=== PATIENT | female | born 1960 | race Caucasian/White ===

== ENCOUNTER 2024-12-06 19:58 | Emergency (ER) | payer MEDICARE ==
[~2024-12-06] VITALS: Ht 175.3 cm; Wt 54.0 kg
[2024-12-06 20:00] VITALS: O2SAT 97
[2024-12-06 21:06] LABS: HEMATOCRIT. 38.6 % (36.0-48.0); HEMOGLOBIN. 12.8 g/dL (12.0-16.0); MEAN CORPUSCULAR HEMOGLOBIN 27.8 pg (28.0-32.0); MEAN CORPUSCULAR HGB CONC 33.2 g/dL (31.0-37.0); MEAN CORPUSCULAR VOLUME 83.8 fL (81.0-99.0); MEAN PLATELET VOLUME 8.8 fl (7.4-10.4); PLATELET 288 x1000/uL (130-400); WHITE BLOOD COUNT 17.4 x1000/uL (4.5-11.0)
[2024-12-06 21:07] LABS: DIFFERENTIAL COMMENT 1
[2024-12-06 21:14] LABS: CHLORIDE 102 mEq/L (98-107); POTASSIUM 3.9 mEq/L (3.5-5.1); SODIUM 137 mEq/L (136-145)
[2024-12-06 21:15] LABS: CALCIUM 9.5 mg/dL (8.7-10.4); CARBON DIOXIDE 26 mEq/L (21-32)
[2024-12-06 21:20] LABS: CREATININE 0.9 mg/dL (0.6-1.0); GLUCOSE 140 mg/dL (70-105); UREA NITROGEN BLOOD 10 mg/dL (9-23)
[2024-12-06 21:21] LABS: TROPONIN I HIGH SENSITIVITY < 4 ng/L (3.0-34)
[2024-12-06 21:22] LABS: ALANINE AMINOTRANSFERASE 35 IU/L (10-49); ALBUMIN 4.5 g/dL (3.2-4.8); ASPARTATE AMINOTRANSFERASE 24 IU/L (<34); BILIRUBIN DIRECT 0.2 mg/dL (<=3.0); BILIRUBIN TOTAL 0.9 mg/dL (0.1-1.0); PROTEIN TOTAL 7.3 g/dL (6.0-8.3); PROTHROMBIN TIME 10.7 sec (9.6-11.0)
[2024-12-06 22:05] LABS: PLATELET ESTIMATE NORMAL
[2024-12-06] MEDS: ONDANSETRON HCL 4MG/2ML INJ IV STA (22:08)
[2024-12-06] MEDS: FAMOTIDINE 20MG/2ML VIAL IV ONE (22:10)
[2024-12-06] MEDS: KETOROLAC 30MG/ML VIAL IV STA (22:10)
[2024-12-06] MEDS: SODIUM CHLORIDE 0.9% 1,000 ML IV ONE (22:10)
[2024-12-06] MEDS ORDERED: ONDA-239 PO (23:52)
[2024-12-06] MEDS ORDERED: FAMO40TA7 MT (23:52)
[2024-12-07 00:30] VITALS: BP 134/66; PULSE 86; RESP 16; TEMP 36.8; O2SAT 98
== END 2024-12-07 00:30 | disposition home or self-care (01) ==
LOC: ER 19:58
DX: K29.70 Gastritis, unspecified, without bleeding (principal); R11.2 Nausea with vomiting, unspecified; R19.00 Intra-abdominal and pelvic swelling, mass and lump, unspecified site; Z79.899 Other long term (current) drug therapy
CPT/HCPCS: 99285; 74176; 96374; 96361; 96375; 71045; 80076; 80048; 83690; 85025; 85610; 84484; 36415; 93005; J1885; J1308; J2405; J7030; A6449